=== PATIENT | male | born 1960 | race Caucasian/White ===

== ENCOUNTER 2022-07-19 14:10 | Emergency (ER) | payer MEDICAID, OTHER ==
[2022-07-19 15:11] LABS: ANION GAP 16.8 mmol/L (5-15); CHLORIDE,CL 108 mmol/L (98-107); SODIUM,NA 149 mmol/L (136-145)
[2022-07-19 15:14] LABS: ESTIMATED GFR 8 mL/min (>=60)
[2022-07-19] MEDS ORDERED: Sodium Chloride 0.9% 1,000 ML IV ONE (15:48)
== END 2022-07-19 17:23 | disposition short-term general hospital (02) ==
LOC: VM.ED 14:10
DX: N17.9 Acute kidney failure, unspecified (principal)
CPT/HCPCS: 80053; 85025; 86140; 96360; 99285; J7030